=== PATIENT | male | born 1975 | race Caucasian/White ===

== ENCOUNTER → 2022-06-13 | Outpatient (CLI) | payer OTHER ==
[~2022-06-13] MED LIST: LIDOCAINE 1% INJ 30 ML (XYLOCAINE) VIAL INJ ONE; LIDOCAINE 1% INJ 30 ML (XYLOCAINE) VIAL ONE
== END ==
LOC: RAD 11:20
PROVIDERS: ATTEND Otolaryngology Otolaryngology/Facial Plastic Surgery
DX: E04.1 Nontoxic single thyroid nodule (principal); E06.3 Autoimmune thyroiditis; Z53.9 Procedure and treatment not carried out, unspecified reason

== ENCOUNTER → 2022-10-31 | Outpatient (CLI) | payer OTHER ==
[~2022-10-31] VITALS: Ht 172.7 cm; Wt 97.7 kg
[~2022-10-31] MED LIST changes: +LIDOCAINE 1% INJ 10 ML VIAL INJ ONE; +LIDOCAINE 1% INJ 10 ML VIAL ONE; -LIDOCAINE 1% INJ 30 ML (XYLOCAINE) VIAL INJ ONE; -LIDOCAINE 1% INJ 30 ML (XYLOCAINE) VIAL ONE
--- NOTE | 2022-10-31 12:22 | Diagnostic Imaging Report ---
INDICATION: Left thyroid nodule. Patient presents for ultrasound-guided fine-needle aspiration. DETAILS OF THE PROCEDURE: The patient was brought to the procedure room and placed on the table in the supine position. Ultrasound imaging of the neck was performed to evaluate for an appropriate entry site. The left neck was then prepped and draped in the usual sterile fashion. A small amount of 1% lidocaine was utilized for local anesthesia. Four passes were made into the vague hypoechoic nodule in the posterior inferior left lobe of the thyroid utilizing 25-gauge needles and fine-needle aspiration technique. Hemostasis was obtained. The patient tolerated the procedure well and left the Department in stable condition. IMPRESSION: Ultrasound-guided fine-needle aspiration of the vague area of hypoechogenicity in the lower pole of the left lobe of the thyroid. Pathology results are currently pending. Dictated by: Dictated on workstation # [id number]
== END ==
LOC: RAD 10:20
PROVIDERS: ATTEND Family Medicine
DX: E04.1 Nontoxic single thyroid nodule (principal)